=== PATIENT | male | born 1940 | race Caucasian/White ===

== ENCOUNTER → 2020-07-03 | Emergency (ER) | payer OTHER | END | disposition left against medical advice (07) | LOC: ER 15:45 | DX: Z53.21 Procedure and treatment not carried out due to patient leaving prior to being seen by health care provider (principal) ==

== ENCOUNTER → 2020-07-04 | Outpatient (CLI) | payer OTHER | END | disposition home or self-care (01) | LOC: ASH CLINIC 12:56 | PROVIDERS: ATTEND Surgery | DX: Z23 Encounter for immunization (principal); U07.1 COVID-19 ==